=== PATIENT | female | born 1985 ===

== ENCOUNTER → 2021-11-24 | Outpatient (CLI) | payer MEDICARE ==
--- NOTE | 2021-11-24 17:19 | P.HPBAR ---
Bariatric H&P - History & Physicial H&P Date: 11/24/21 History & Physicial: Visit/CC: Patient initial contact: Initial weight: Initial weight in pounds: Height: Initial BMI: Last weight: Current weight: Current weight in pounds: Current BMI: [place] body weight (based on NIH guidelines): Excess body weight loss: The patient is a 36 year-old F who presents for Bariatric Assessment. DATE OF SERVICE: 11/24/2021 REASON FOR CONSULTATION: Initial bariatric evaluation. HISTORY OF PRESENT ILLNESS: Emilia Monet is a 36-year-old female who comes with lifelong morbid obesity. She comes in with a complicated medical history including wheelchair bound, catheterization to the umbilicus with surgery performed at [facility]. She reports small bladder barely 10 mL. She does not follow up with specialist of her urologist. She does not follow up with multiple providers given the severity of her condition. She presents with family and a small baby. She travels from the [facility]. No reports of prior attempts of weight loss. She presents first time in consultation. At height of 5 feet 6.25 inches, her ideal body weight is 163 pounds. Her highest weight is 292 pounds, body mass index 46.9. She comes in 292 pounds. Her body mass index is 46.9. She is 138 pounds overweight. PAST MEDICAL HISTORY: 1. Morbid obesity due to excess calories 2. Body mass index of 46.9 3. Gastroesophageal reflux disease 4. Hypertensive heart disease 5. Hypothyroidism 6. Anxiety disorder 7. Osteoarthritis of the back 8. Wheelchair bound 9. Bladder hypotrophy PAST SURGICAL HISTORY: 1. Spinal fusion 2. Umbilical catheterization HOME MEDICATIONS: ALLERGIES: SOCIAL HISTORY: Denies tobacco use. FAMILY HISTORY: No family history of ulcerative colitis disease or Crohn's disease. Family history of morbid obesity. No lupus in the family. No reports of stomach or esophageal cancer. She reports her grandmother had obesity. REVIEW OF ORGAN SYSTEMS: CONSTITUTIONAL: HEENT: Denies any active troubles with vision or hearing. ENDOCRINE: Denies diabetes. Denies hypothyroidism. CARDIOVASCULAR: Denies past reports of palpitations or heart attacks or chest pain. RESPIRATORY: Has daytime somnolence and snores. GASTROINTESTINAL: Denies any bright red blood per rectum. No diarrhea. No constipation. Has gastroesophageal reflux disease. GENITOURINARY: Denies bladder urgency. No recent blood in urine MUSCULOSKELETAL: Has lower back pain and joint pain. Denies history of bilateral lower extremity edema. Osteoarthritis of the lower back. Osteoarthritis of the right hip Osteoarthritis of the right knee. Osteoarthritis of the ankles, both NEURO: Has chronic migraines. No seizure disorders. PSYCH: Denies depression. No suicidal ideation. Has anxiety. RHEUMATOLOGIC: No lupus. No rheumatoid arthritis. HEMATOLOGIC: Denies any abnormal bleeding or bruising. Denies past history of DVTs. SKIN: No rash. No skin cancer. PHYSICAL EXAM: VITAL SIGNS: Height 5 foot 6.25 inches, weight 292 pounds. BMI 46.9 Vital Signs Temp 98 F 11/25/21 10:45 Pulse 91 11/25/21 10:45 Resp BP 130/81 11/25/21 10:45 Pulse Ox GENERAL: Well-developed in no acute distress. HEENT: No scleral icterus. Extraocular movements grossly intact. Hears conversational speech. No nasal drainage. NECK: Supple without lymphadenopathy. CHEST: Nonlabored respirations with equal bilateral excursions. CARDIOVASCULAR: Regular rate and regular rhythm. Distal 2+ pulses. ABDOMEN: Obese, soft, nontender, nondistended. MUSCULOSKELETAL: No clubbing, cyanosis. NEURO: No focal or lateralizing signs. Cranial nerves 2 through 12 grossly within normal limits. PSYCH: Appropriate affect. Alert and oriented to person, place and time. SKIN: Good skin turgor. Well perfused. ASSESSMENT: 1. Morbid obesity due to excess calories 2. Body mass index of 46.9 3. Gastroesophageal reflux disease 4. Hypertensive heart disease 5. Hypothyroidism 6. Anxiety disorder 7. Osteoarthritis of the back 8. Wheelchair bound 9. Bladder hypotrophy PLAN: 1. She has multiple medical co-morbidities with a complicated umbilical bladder procedure at [facility]. Recommend procedure at tertiary care center such as [facility] of her revisional surgery due to her multiple comorbidities. 2. In the interim, she will need 12 months of medical supervised weight loss. 3. May start bariatric labs including dietary education. 4. Patient is extremely high risk and recommend tertiary care assessment at [facility] from her original operation. 5. Also recommend that she locally follow up with urologist. Thank you for this consultation. Bariatric Checklist Checklist: Plan: Checklist: EGD: 1. Hiatal hernia: 2. H. Pylori: HgbA1c: Vitamin D: Smoking: Primary care physician referral: Psychiatry clearance: Cardiology clearance: Sleep study: Diet journal: VTE risk score: VTE risk level: Rehab needs at discharge:
[2021-11-25 15:02] VITALS: BP 130/81; PULSE 91; TEMP 98; BMI 46.9
== END ==
LOC: BARWHC3 14:50
PROVIDERS: ATTEND Surgery Plastic and Reconstructive Surgery
DX: E66.01 Morbid (severe) obesity due to excess calories (principal); Z68.42 Body mass index [BMI] 45.0-49.9, adult; I11.9 Hypertensive heart disease without heart failure; E03.9 Hypothyroidism, unspecified; F41.9 Anxiety disorder, unspecified; M47.9 Spondylosis, unspecified; N32.89 Other specified disorders of bladder; Z99.3 Dependence on wheelchair
CPT/HCPCS: 99203